=== PATIENT | male | born 1985 | race Caucasian/White ===

== ENCOUNTER 2016-03-25 17:28 | Emergency (ER) | payer OTHER ==
[~2016-03-25] VITALS: Ht 175.3 cm; Wt 160.0 kg
[~2016-03-25 17:28] MED LIST: ASPI81 PO; BACT800T5 PO; GLUCOMETER XX; GLUCOMTESTSTRIPS XX; GLUCTAB PO; INSU100V SQ; PANT40IN3 PO; Z.0.INSULINSYR XX; Z.0.LANCETS XX
[2016-03-25 17:35] VITALS: BP 145/94; PULSE 86; RESP 18; TEMP 97.8; O2SAT 98
[2016-03-25] MEDS ORDERED: KETOROLAC TROMETHAMINE 60 MG/2 ML (IM) VIAL IM ONE (18:30)
[2016-03-25] MEDS ORDERED: ORPHENADRINE INJ 60 MG/2 ML AMP IM ONE (18:30)
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
[2016-03-25 19:52] VITALS: RESP 18
[2016-03-25] MEDS ORDERED: IBUP-232 PO (20:05)
[2016-03-25] MEDS ORDERED: ROBA750T PO (20:05)
== END 2016-03-25 20:17 | disposition home or self-care (01) ==
LOC: PHEFT 17:28
DX: S16.1XXA Strain of muscle, fascia and tendon at neck level, initial encounter (principal); M54.12 Radiculopathy, cervical region; Z79.82 Long term (current) use of aspirin; F41.8 Other specified anxiety disorders; F31.9 Bipolar disorder, unspecified; I10 Essential (primary) hypertension; Z86.73 Personal history of transient ischemic attack (TIA), and cerebral infarction without residual deficits; E11.9 Type 2 diabetes mellitus without complications; V43.62XA Car passenger injured in collision with other type car in traffic accident, initial encounter; Y93.9 Activity, unspecified; Y92.9 Unspecified place or not applicable; Y99.9 Unspecified external cause status
CPT/HCPCS: 72125; 96372; 99283; J1885; J2360

== ENCOUNTER 2016-08-27 21:21 | Emergency (ER) | payer SELFPAY ==
[~2016-08-27] VITALS: Ht 170.2 cm; Wt 152.0 kg
[~2016-08-27 21:21] MED LIST changes: -ASPI81 PO; -BACT800T5 PO; -GLUCOMETER XX; -GLUCOMTESTSTRIPS XX; -GLUCTAB PO; +IBUP-232 PO; -INSU100V SQ; -PANT40IN3 PO; +ROBA750T PO; -Z.0.INSULINSYR XX; -Z.0.LANCETS XX
[2016-08-27 21:26] VITALS: BP 155/112; PULSE 88; RESP 20; TEMP 98.1; O2SAT 95
[2016-08-27 21:50] VITALS: BP 166/117; PULSE 68; RESP 20; O2SAT 96
--- NOTE | 2016-08-27 22:11 | PD ---
HPI Chief Complaint: Headache Time Seen by Provider: 21:53 Travel History International Travel<30 days: No Contact w/Intl Traveler<30days: No Traveled to known affect area: No History of Present Illness HPI 31-year-old male complains of headache, photophobia, dizziness, forgetfulness. Patient states that he started having throbbing headache diffuse over the head for the past week. Patient started having dizziness tonight along with episodes of forgetfulness. Patient complains of photophobia and jaw pain this evening also. Patient denies any visual change. Patient denies any neck pain. Patient denies any chest pain or shortness of breath. Patient denies abdominal pain. Patient denies any focal weakness or numbness of extremity. Patient has history of headache in the past. Patient was seen by a neurologist and workup was negative. Patient has history of diabetes. Patient states that he was on metformin and NovoLog and ran out of money and has not been taking any medication for the past year for diabetes. Patient has been practicing diet -controlled. Patient states that his blood sugars been running around 190-215 after meals . Patient also has history of bipolar disorder, status post CVA. Patient has family history of brain aneurysm early in life. PFSH Past Medical History Hx Anticoagulant Therapy: Yes Asthma: Yes Autoimmune Disease: No Bipolar Disorder: Yes Anxiety: Yes Depression: Yes Cardiac Catheterization: Yes (03/2012) Cardiovascular Problems: Yes (HTN) Chest Pain: Yes COPD: No Cerebrovascular Accident: Yes (TIA 2013) Diabetes: Yes (NO INSULIN SINCE DEC) Diminished Hearing: No Endocrine: Yes Gastrointestinal Disorders: Yes GERD: No Genitourinary: No Headaches: Yes Immune Disorder: No Implanted Vascular Access Dvce: No Musculoskeletal: No Neurologic: Yes Psychiatric: Yes (History of inpatient treatment.) Reproductive: No Respiratory: Yes Immunizations Current: Yes Migraines: Yes Pneumonia: Yes Sleep Apnea: Yes (USES CPAP) Past Surgical History Abdominal Surgery: No Cardiac Surgery: Yes Ear Surgery: No Endocrine Surgery: No Eye Surgery: No Genitourinary Surgery: No Gynecologic Surgery: No Neurologic Surgery: No Oral Surgery: Yes Thoracic Surgery: No Tonsillectomy: Yes Other Surgery: Yes (SEE MED RECORD) Social History Alcohol Use: No Tobacco Use: No Substance Use: No Allergies-Medications (Allergen,Severity, Reaction): Coded Allergies: Penicillin (Verified Allergy, Severe, 07/28/16) PEANUTS (Verified Allergy, Unknown, 07/28/16) Reported Meds & Prescriptions Reported Meds & Active Scripts Active Ibuprofen 600 Mg Tab 600 Mg PO Q6H PRN Review of Systems General / Constitutional: No: Fever Eyes: Positive: Photophobia (TM year), No: Visual changes HENT: Positive: Headaches, Lightheadedness ( reactive) Cardiovascular: No: Chest Pain or Discomfort Respiratory: No: Shortness of Breath Gastrointestinal: No: Abdominal Pain Genitourinary: No: Dysuria Musculoskeletal: No: Pain Skin: No Rash Neurologic: No: Weakness Psychiatric: No: Depression Endocrine: No: Polydipsia Hematologic/Lymphatic: No: Easy Bruising Physical Exam Narrative GENERAL: Well-nourished, well-developed patient. SKIN: Focused skin assessment warm/dry. HEAD: Normocephalic. EYES: No scleral icterus. No injection or drainage. Pupils 3 mm equal reactive. NECK: Supple, trachea midline. No JVD or lymphadenopathy. No meningismus CARDIOVASCULAR: Regular rate and rhythm without murmurs, gallops, or rubs. RESPIRATORY: Breath sounds equal bilaterally. No accessory muscle use. GASTROINTESTINAL: Abdomen soft, non-tender, nondistended. MUSCULOSKELETAL: No cyanosis, or edema. BACK: Nontender without obvious deformity. No CVA tenderness. Neurologic exam normal. Data Data Last Documented VS Vital Signs Date Time Temp Pulse Resp B/P Pulse Ox O2 Delivery O2 Flow Rate FiO2 08/27/16 22:28 96 20 96 08/27/16 21:50 166/117 08/27/16 21:26 98.1 Orders Complete Blood Count With Diff (08/27/16 22:01) Comprehensive Metabolic Panel (08/27/16 22:01) Prothrombin Time / Inr (Pt) (08/27/16 22:01) Act Partial Throm Time (Ptt) (08/27/16 22:01) Westergren Sedimentation Rate (08/27/16 22:01) Ct Brain W/O Iv Contrast(Rout) (08/27/16 22:01) Iv Access Insert/Monitor (08/27/16 22:01) Ecg Monitoring (08/27/16 22:01) Oximetry (08/27/16 22:01) Cta Brain W Iv Contrast W 3d (08/27/16 ) Morphine Inj (Morphine Inj) (08/27/16 22:15) Ondansetron Inj (Zofran Inj) (08/27/16 22:15) Diphenhydramine Inj (Benadryl Inj) (08/27/16 22:15) Cta Neck W Iv Contrast W 3d (08/27/16 22:05) Sodium Chlorid 0.9% 500 Ml Inj (Ns 500 M (08/27/16 23:30) Insulin Human Regular Inj (Novolin R Inj (08/27/16 23:30) Labs Laboratory Tests Test 08/27/16 22:05 White Blood Count 8.7 TH/MM3 Red Blood Count 5.60 MIL/MM3 Hemoglobin 15.8 GM/DL Hematocrit 46.1 % Mean Corpuscular Volume 82.3 FL Mean Corpuscular Hemoglobin 28.2 PG Mean Corpuscular Hemoglobin 34.3 % Concent Red Cell Distribution Width 11.8 % Platelet Count 275 TH/MM3 Mean Platelet Volume 7.8 FL Neutrophils (%) (Auto) 50.1 % Lymphocytes (%) (Auto) 37.4 % Monocytes (%) (Auto) 8.1 % Eosinophils (%) (Auto) 1.2 % Basophils (%) (Auto) 3.2 % Neutrophils # (Auto) 4.3 TH/MM3 Lymphocytes # (Auto) 3.3 TH/MM3 Monocytes # (Auto) 0.7 TH/MM3 Eosinophils # (Auto) 0.1 TH/MM3 Basophils # (Auto) 0.3 TH/MM3 CBC Comment DIFF FINAL Differential Comment Erythrocyte Sedimentation Rate 6 mm/hr Prothrombin Time 10.0 SEC Prothromb Time International 0.9 RATIO Ratio Activated Partial 24.3 SEC Thromboplast Time Sodium Level 136 MEQ/L Potassium Level 4.1 MEQ/L Chloride Level 99 MEQ/L Carbon Dioxide Level 27.4 MEQ/L Anion Gap 10 MEQ/L Blood Urea Nitrogen 8 MG/DL Creatinine 0.82 MG/DL Estimat Glomerular Filtration 110 ML/MIN Rate Random Glucose 495 MG/DL Calcium Level 9.3 MG/DL Total Bilirubin 0.5 MG/DL Aspartate Amino Transf 15 U/L (AST/SGOT) Alanine Aminotransferase 36 U/L (ALT/SGPT) Alkaline Phosphatase 117 U/L Total Protein 7.5 GM/DL Albumin 3.6 GM/DL MDM Medical Decision Making Medical Screen Exam Complete: Yes Emergency Medical Condition: Yes Interpretation(s) 23:20 PM. CBC within normal limits. Sedimentation rate 6. CMP within normal limit. Glucose 495. Differential Diagnosis Differential diagnosis including migraine headache, tension headache, cluster headache, electrolyte abnormality, TIA, CVA, brain aneurysm. Narrative Course 31-year-old male with headache, photophobia, jaw pain, dizziness, forgetfulness. Morphine 2 mg IV. Benadryl 25 mg IV. Zofran 4 mg IV. Normal saline solution 1 L IV bolus. Novolin R 10 units IV given. Diagnosis Primary Impression: Cephalgia Qualified Code: R51 - Nonintractable episodic headache, unspecified headache type Additional Impression: Hyperglycemia Daniel Diaz MD Aug 27, 2016 22:11
[2016-08-27] MEDS ORDERED: diphenhydrAMINE HCL 50 MG/ML VIAL IV PUSH ONE (22:15)
[2016-08-27] MEDS ORDERED: MORPHINE SULFATE 4 MG/ML INJ IV PUSH ONE (22:15)
[2016-08-27] MEDS ORDERED: ONDANSETRON HCL 4 MG/2 ML VIAL IV PUSH ONE (22:15)
[2016-08-27 22:17] LABS: AUTOMATED NEUTROPHIL # 4.3 TH/MM3 (1.8-7.7); BASOPHIL # 0.3 TH/MM3 (0-0.2); BASOPHIL % 3.2 % (0.0-2.0); EOSINOPHIL # 0.1 TH/MM3 (0-0.4); EOSINOPHIL % 1.2 % (0.0-4.0); HEMATOCRIT 46.1 % (39.0-51.0); HEMO FLAGS DIFF FINAL; LYMPH % 37.4 % (9.0-44.0); LYMPHOCYTE # 3.3 TH/MM3 (1.0-4.8); MEAN CELL VOLUME 82.3 FL (80.0-100.0); MEAN CORPUSCULAR HEMOGLOBIN 28.2 PG (27.0-34.0); MEAN CORPUSCULAR HGB CONC 34.3 % (32.0-36.0); MONO % 8.1 % (0.0-8.0); NEUT % 50.1 % (16.0-70.0); PLATELET COUNT 275 TH/MM3 (150-450); RED CELL DISTRIBUTION WIDTH 11.8 % (11.6-17.2); WHITE BLOOD COUNT 8.7 TH/MM3 (4.0-11.0)
[2016-08-27 22:30] VITALS: BP 144/86; PULSE 74; RESP 20; O2SAT 96
[2016-08-27 22:36] LABS: CHLORIDE 99 MEQ/L (98-107); POTASSIUM 4.1 MEQ/L (3.5-5.1); SODIUM (NA) 136 MEQ/L (136-145)
[2016-08-27 22:40] LABS: ANION GAP 10 MEQ/L (5-15); BICARBONATE 27.4 MEQ/L (21.0-32.0)
[2016-08-27 22:50] LABS: APTT (PATIENT) 24.3 SEC (24.3-30.1); INTERNATIONAL NORMALIZED RATIO 0.9 RATIO
[2016-08-27 23:09] LABS: ALKALINE PHOSPHATASE 117 U/L (45-117); ALT (GPT) 36 U/L (12-78); AST (GOT) 15 U/L (15-37); BLOOD UREA NITROGEN 8 MG/DL (7-18); GLOMERULAR FILTRATION RATE 110 ML/MIN (>89); TOTAL BILIRUBIN ADULT 0.5 MG/DL (0.2-1.0)
[2016-08-27] MEDS ORDERED: INSULIN HUMAN REGULAR 1,000 UNITS/10 ML VIAL IV PUSH ONE (23:30)
[2016-08-27] MEDS ORDERED: SODIUM CHLORID 0.9% 500 ML INJ 500 ML IV ONE (23:30)
[2016-08-28] MEDS ORDERED: IOHEXOL 350 MG/ML 100 ML BTL (for RAD DIAG) IV ONE (00:06)
--- NOTE | 2016-08-28 00:13 | PD ---
Physical Exam Date Seen by Provider: Aug 28, 2016 Time Seen by Provider: 00:12 Narrative Accepted in transfer of care from Dr. Daiz Data Data Last Documented VS Vital Signs Date Time Temp Pulse Resp B/P Pulse Ox O2 Delivery O2 Flow Rate FiO2 08/28/16 00:30 71 20 145/77 97 08/27/16 21:26 98.1 Orders Complete Blood Count With Diff (08/27/16 22:01) Comprehensive Metabolic Panel (08/27/16 22:01) Prothrombin Time / Inr (Pt) (08/27/16 22:01) Act Partial Throm Time (Ptt) (08/27/16 22:01) Westergren Sedimentation Rate (08/27/16 22:01) Iv Access Insert/Monitor (08/27/16 22:) Ecg Monitoring (08/27/16 22:01) Oximetry (08/27/16 22:01) Morphine Inj (Morphine Inj) (08/27/16 22:15) Ondansetron Inj (Zofran Inj) (08/27/16 22:15) Diphenhydramine Inj (Benadryl Inj) (08/27/16 22:15) Sodium Chlorid 0.9% 500 Ml Inj (Ns 500 M (08/27/16 23:30) Insulin Human Regular Inj (Novolin R Inj (08/27/16 23:30) Ct Brain W/O Iv Contrast(Rout) (08/28/16 00:06) Cta Brain W Iv Contrast W 3d (08/28/16 00:06) Cta Neck W Iv Contrast W 3d (08/28/16 00:06) Iohexol 350 Inj (Omnipaque 350 Inj) (08/28/16 00:06) Labs Laboratory Tests Test 08/27/16 22:05 White Blood Count 8.7 TH/MM3 Red Blood Count 5.60 MIL/MM3 Hemoglobin 15.8 GM/DL Hematocrit 46.1 % Mean Corpuscular Volume 82.3 FL Mean Corpuscular Hemoglobin 28.2 PG Mean Corpuscular Hemoglobin 34.3 % Concent Red Cell Distribution Width 11.8 % Platelet Count 275 TH/MM3 Mean Platelet Volume 7.8 FL Neutrophils (%) (Auto) 50.1 % Lymphocytes (%) (Auto) 37.4 % Monocytes (%) (Auto) 8.1 % Eosinophils (%) (Auto) 1.2 % Basophils (%) (Auto) 3.2 % Neutrophils # (Auto) 4.3 TH/MM3 Lymphocytes # (Auto) 3.3 TH/MM3 Monocytes # (Auto) 0.7 TH/MM3 Eosinophils # (Auto) 0.1 TH/MM3 Basophils # (Auto) 0.3 TH/MM3 CBC Comment DIFF FINAL Differential Comment Erythrocyte Sedimentation Rate 6 mm/hr Prothrombin Time 10.0 SEC Prothromb Time International 0.9 RATIO Ratio Activated Partial 24.3 SEC Thromboplast Time Sodium Level 136 MEQ/L Potassium Level 4.1 MEQ/L Chloride Level 99 MEQ/L Carbon Dioxide Level 27.4 MEQ/L Anion Gap 10 MEQ/L Blood Urea Nitrogen 8 MG/DL Creatinine 0.82 MG/DL Estimat Glomerular Filtration 110 ML/MIN Rate Random Glucose 495 MG/DL Calcium Level 9.3 MG/DL Total Bilirubin 0.5 MG/DL Aspartate Amino Transf 15 U/L (AST/SGOT) Alanine Aminotransferase 36 U/L (ALT/SGPT) Alkaline Phosphatase 117 U/L Total Protein 7.5 GM/DL Albumin 3.6 GM/DL [facility] Medical Record Reviewed: Yes Supervised Visit with DORCAS: No Interpretation(s) CTA carotids: ONCLUSION: Normal carotid CTA. Gareth Hernandez MD on August 28, 2016 at 2:34 Board Certified Radiologist. This report was verified electronically. CVTA brain: CONCLUSION: Normal CT angiogram of the brain. No aneurysm, thrombosis or stenosis Gareth Hernandez MD on August 28, 2016 at 2:31 Board Certified Radiologist. This report was verified electronically. CT brain w/o: CONCLUSION: Negative noncontrast head CT. Gareth Hernandez MD on August 28, 2016 at 0:53 Board Certified Radiologist. This report was verified electronically. Last Impressions Neck CTA 08/28/165 Signed Impressions: Service Date/Time: Saturday, August 27, 2016 23:58 - CONCLUSION: Normal carotid CTA. Gareth Hernandez MD Head CTA 08/28/165 Signed Impressions: Service Date/Time: Saturday, August 27, 2016 23:58 - CONCLUSION: Normal CT angiogram of the brain. No aneurysm, thrombosis or stenosis Gareth Hernandez MD Head CT 08/28/165 Signed Impressions: Service Date/Time: Saturday, August 27, 2016 23:58 - CONCLUSION: Negative noncontrast head CT. Gareth Hernandez MD Differential Diagnosis Please refer to Dr. Diaz's dictation Narrative Course Accepted transfer of care from Dr. Diaz for follow-up pending imaging studies and patient disposition; patient in CT Patient resting quietly waiting imaging results CT brain noncontrast reveals no acute abnormality read as negative by reading radiologist It is now 3 AM CTA brain and CTA carotids imaging studies have been resulted by radiologist and read as no acute abnormality Patient is informed of imaging results and stable for outpatient management. Diagnosis Primary Impression: Cephalgia Qualified Code: R51 - Nonintractable episodic headache, unspecified headache type Additional Impressions: Hyperglycemia Medication refill Diabetes mellitus Referrals: [facility] call for appointment [facility] call for appointment Primary Care Physician call for appointment Patient Instructions: General Instructions Additional Instruction: Increase fluid hydration Follow-up with your primary care provider Return to the emergency department for any concerns or change in condition Take medication as prescribed as needed for nausea and/or vomiting Med/Other Pt SpecificInfo: Prescription(s) given Scripts Metformin 500 Mg Exf091 Mg PO BIDPC #60 TAB Ref 0 With meals Prov:Gerda Titus MD 08/28/16 Ondansetron Odt (Zofran Odt)4 Mg Tab4 Mg SL Q6HR PRN (Nausea/Vomiting) #10 TAB Ref 0 Prov:Gerda Titus MD 08/28/16 Disposition: 01 DISCHARGE HOME Condition: Stable Gerda Titus MD Aug 28, 2016 00:13
[2016-08-28 00:30] VITALS: BP 145/77; PULSE 71; RESP 20; O2SAT 97
--- NOTE | 2016-08-28 00:55 | RADHPO ---
EXAM DATE/TIME: 08/27/2016 23:58 [facility] COMPARISON: MRI BRAIN W/O CONTRAST, November 07, 2015, 17:08. CT BRAIN W/O CONTRAST, November 07, 2015, 15:36. INDICATIONS : Cephalgia. Dizziness. Confusion. RADIATION DOSE: 57.75 CTDIvol (mGy) MEDICAL HISTORY : Diabetes mellitus type 2. Hypertension. Cerebrovascular disease. SURGICAL HISTORY : None. ENCOUNTER: Initial ACUITY: 2 weeks PAIN SCALE: 9/10 LOCATION: cranial TECHNIQUE: Multiple contiguous axial images were obtained of the head. Using automated exposure control and adj ustment of the mA and/or kV according to patient size, radiation dose was kept as low as reasonably a chievable to obtain optimal diagnostic quality images. FINDINGS: CEREBRUM: The ventricles are normal for age. No evidence of midline shift, mass lesion, hemorrhage or acute in farction. No extra-axial fluid collections are seen. POSTERIOR FOSSA: The cerebellum and brainstem are intact. The 4th ventricle is midline. The cerebellopontine angle i s unremarkable. EXTRACRANIAL: The visualized portion of the orbits is intact. SKULL: The calvaria is intact. No evidence of skull fracture. CONCLUSION: Negative noncontrast head CT. Gareth Hernandez MD on August 28, 2016 at 0:53 Board Certified Radiologist. This report was verified electronically.
--- NOTE | 2016-08-28 02:35 | RADHPO ---
EXAM DATE/TIME: 08/27/2016 23:58 [facility] COMPARISON: CT BRAIN W/O CONTRAST, August 27, 2016, 23:58. INDICATIONS : Cephalgia. Dizziness. Confusion. Evaluate for aneurysm. IV CONTRAST: 100 cc Omnipaque 350 (iohexol) IV ; Cumulative dose for multiple exams. RADIATION DOSE: 42.32 CTDIvol (mGy) ; Combined studies MEDICAL HISTORY : Cerebrovascular disease. Diabetes mellitus type 2. Hypertension. SURGICAL HISTORY : None. ENCOUNTER: Initial ACUITY: 2 weeks PAIN SCALE: 9/10 LOCATION: cranial TECHNIQUE: Volumetric scanning was performed using a multi-row detector CT scanner. The data was post processed with a variety of visualization algorithms including full volume maximum intensity projection, multi -planar sliding thin slab reformation, curved planar reformation, and surface rendering techniques. Using automated exposure control and adjustment of the mA and/or kV according to patient size, radiat ion dose was kept as low as reasonably achievable to obtain optimal diagnostic quality images. FINDINGS: There is excellent visualization of the major intracranial arteries out to the second-order branch ve ssels. There is no evidence for aneurysm, vessel truncation or stenosis, and no evidence for vascula r malformation. CONCLUSION: Normal CT angiogram of the brain. No aneurysm, thrombosis or stenosis Gareth Hernandez MD on August 28, 2016 at 2:31 Board Certified Radiologist. This report was verified electronically.
--- NOTE | 2016-08-28 02:38 | RADHPO ---
EXAM DATE/TIME: 08/27/2016 23:58 [facility] COMPARISON: CTA BRAIN W 3D RECON, August 27, 2016, 23:58. CT BRAIN W/O CONTRAST, August 27, 2016, 23:58. CTA CAROTI D ARTERIES W 3D RECON, November 09, 2015, 16:26. INDICATIONS : Cephalgia. Dizziness. Confusion. Evaluate for aneurysm. IV CONTRAST: 100 cc Omnipaque 350 (iohexol) IV ; Cumulative dose for multiple exams. RADIATION DOSE: 42.32 CTDIvol (mGy) ; Combined studies MEDICAL HISTORY : Hypertension. Diabetes mellitus type 2. Cerebrovascular disease. SURGICAL HISTORY : None. ENCOUNTER: Initial ACUITY: 2 weeks PAIN SCALE: 9/10 LOCATION: neck Elevated flow velocities and ICA/CCA ratios have been found to correlate with increased degrees of vessel stenosis, calculated as percentage of diameter relative to a normal segment of distal ICA/CCA. TECHNIQUE: Volumetric scanning was performed using a multirow detector CT scanner. The data was post processed with a variety of visualization algorithms including full-volume maximum intensity projection, multip lanar sliding thin-slab reformation, curved-planar reformation, and surface-rendering techniques. Us ing automated exposure control and adjustment of the mA and/or kV according to patient size, radiatio n dose was kept as low as reasonably achievable to obtain optimal diagnostic quality images. FINDINGS: AORTIC ARCH: There is a three-vessel origin of the great vessels from the aorta. No evidence of ostial narrowing. RIGHT CAROTID: The common carotid artery is intact. The carotid bulb has a normal configuration without ulceration o r narrowing. The internal carotid artery lumen is smooth without stenosis. The external carotid naz ry is intact. LEFT CAROTID: The common carotid artery is intact. The carotid bulb has a normal configuration without ulceration or narrowing. The internal carotid artery lumen is smooth without stenosis. The external carotid ar evans is intact. VERTEBRALS: The vertebral arteries have a symmetric diameter. No stenotic lesions are seen. CONCLUSION: Normal carotid CTA. Gareth Hernandez MD on August 28, 2016 at 2:34 Board Certified Radiologist. This report was verified electronically.
[2016-08-28] MEDS ORDERED: ZOFR4TAB3 SL (03:03)
[2016-08-28] MEDS ORDERED: METF500T PO (03:06)
[2016-08-28 03:21] VITALS: BP 119/73
--- NOTE | 2016-08-29 16:54 | EKG ---
Date Performed: 08/27/2016 Time Performed: 21:49:09 PTAGE: 31 years EKG: NORMAL Sinus rhythm NONSPECIFIC ST-T WAVE CHANGES NORMAL ECG Likely no significant change. PREVIOUS TRACING : 11/07/2015 15.52 DOCTOR: Anjali Mcniar Interpretating Date/Time 08/29/2016 16:50:10
== END 2016-08-28 03:31 | disposition home or self-care (01) ==
LOC: PHED 21:21
DX: R51 Headache (principal); E11.65 Type 2 diabetes mellitus with hyperglycemia; R68.84 Jaw pain; R42 Dizziness and giddiness
CPT/HCPCS: 70450; 70496; 70498; 80053; 85025; 85610; 85652; 85730; 93005; 96374; 96375; 99285; J1200; J1815; J2270; J2405; J7040; Q9967

== ENCOUNTER 2016-10-30 00:24 | Emergency (ER) | payer SELFPAY ==
[2016-10-30] VITALS (7 sets, daily range): BP systolic 130–157; BP diastolic 69–87; PULSE 62–79; RESP 18–20; TEMP 97.9; O2SAT 96–98
[~2016-10-30] VITALS: Ht 170.2 cm; Wt 149.0 kg
[~2016-10-30 00:24] MED LIST changes: +METF500T PO; -ROBA750T PO; +ZOFR4TAB3 SL
[2016-10-30] MEDS ORDERED: METF1000 PO (02:13)
[2016-10-30] MEDS ORDERED: NOVORP2 SQ (02:13)
[2016-10-30] MEDS ORDERED: SODIUM CHLOR 0.9% 1000 ML INJ 1,000 ML IV SCH (02:50)
[2016-10-30] MEDS ORDERED: SODIUM CHLORIDE 0.9% FLUSH 10 ML FLUSH IV FLUSH PRN (03:00)
[2016-10-30] MEDS ORDERED: ONDANSETRON HCL 4 MG/2 ML VIAL IVP ONE (03:00)
--- NOTE | 2016-10-30 03:05 | PD ---
HPI Chief Complaint: GI Complaint Time Seen by Provider: 02:50 Travel History International Travel<30 days: No Contact w/Intl Traveler<30days: No Traveled to known affect area: No History of Present Illness HPI 31-year-old male presents to the emergency department for 4 days of nausea vomiting dizziness and inability to handle oral hydration or dietary intake. Patient is diabetic. Patient states that he is been very compliant with his diet and blood sugars have typically been less than 200 but since his episode of nausea vomiting dizziness and inability to hydrate his blood sugars have been up to 345 and he doesn't understand why. No fever no chills no cough no congestion no chest pain no back pain. Patient does complain of abdominal discomfort. Patient has had no dysuria frequency urgency or hematuria or flank pain. Patient denies change in bowel habits or diarrhea. No hematemesis no coffee-ground emesis no melena hematochezia. Patient states that he had been doing well and has been swimming daily in after slamming on while walking home had his first episode of vomiting. PFSH Past Medical History Narrative Medical TIA diabetes chest pain with normal coronary vessels by cardiac catheterization asthma anxiety depression hypertension CHF sleep apnea CPAP usage tonsillectomy ; no tobacco use no substance no alcohol use; nursing notes reviewed Hx Anticoagulant Therapy: Yes Asthma: Yes Autoimmune Disease: No Bipolar Disorder: Yes Anxiety: Yes Depression: Yes Cardiac Catheterization: Yes (03/2012) Cardiovascular Problems: Yes (HTN) Chest Pain: Yes Congestive Heart Failure: Yes COPD: No Cerebrovascular Accident: Yes (TIA 2013) Coronary Artery Disease: Yes Diabetes: Yes (NO INSULIN SINCE DEC 2015) Patient Takes Glucophage: Yes Diminished Hearing: No Endocrine: Yes Gastrointestinal Disorders: Yes GERD: No Genitourinary: No Headaches: Yes Hypertension: Yes Immune Disorder: No Implanted Vascular Access Dvce: No Musculoskeletal: No Neurologic: Yes Psychiatric: Yes Reproductive: No Respiratory: Yes Immunizations Current: Yes Migraines: Yes Pneumonia: Yes Sleep Apnea: Yes (USES CPAP) Tetanus Vaccination: < 5 Years Influenza Vaccination: Yes Past Surgical History Abdominal Surgery: No Cardiac Surgery: Yes Ear Surgery: No Endocrine Surgery: No Eye Surgery: No Genitourinary Surgery: No Gynecologic Surgery: No Neurologic Surgery: No Oral Surgery: Yes Thoracic Surgery: No Tonsillectomy: Yes Other Surgery: Yes Social History Alcohol Use: No Tobacco Use: No Substance Use: No Allergies-Medications (Allergen,Severity, Reaction): Coded Allergies: penicillin G (Unverified Allergy, Severe, 10/30/16) peanut (Unverified Allergy, Unknown, 10/30/16) Reported Meds & Prescriptions Reported Meds & Active Scripts Active Reported Novolin R Inj (Insulin Human Regular) 1,000 Unit/10 Ml Vial 0 SQ DIRECTED Sliding Scale As Directed. Metformin (Metformin HCl) 1,000 Mg Tab 1,000 Mg PO BIDPC With meals Review of Systems Except as stated in HPI: all other systems reviewed are Neg Physical Exam Narrative GENERAL: Well-developed obese male in no acute distress no respiratory distress ; GCS 15 SKIN: Warm and dry. HEAD: Normocephalic. EYES: No scleral icterus. No injection or drainage. NECK: Supple, trachea midline. No JVD or lymphadenopathy. CARDIOVASCULAR: Regular rate and rhythm without murmurs, gallops, or rubs. RESPIRATORY: Breath sounds equal bilaterally. No accessory muscle use. GASTROINTESTINAL: Abdomen soft, non-tender, nondistended. MUSCULOSKELETAL: No cyanosis, or edema. BACK: Nontender without obvious deformity. No CVA tenderness. Data Data Last Documented VS Vital Signs Date Time Temp Pulse Resp B/P (MAP) Pulse Ox O2 Delivery O2 Flow Rate FiO2 10/30/16 04:21 62 18 139/69 (92) 97 Room Air 10/30/16 00:36 97.9 Orders Orders Complete Blood Count With Diff (10/30/16 02:50) Comprehensive Metabolic Panel (10/30/16 02:50) Lipase (10/30/16 02:50) Urinalysis - C+S If Indicated (10/30/16 02:50) Iv Access Insert/Monitor (10/30/16 02:50) Ecg Monitoring (10/30/16 02:50) Oximetry (10/30/16 02:50) Ondansetron Inj (Zofran Inj) (10/30/16 03:00) Sodium Chlor 0.9% 1000 Ml Inj (Ns 1000 M (10/30/16 02:50) Sodium Chloride 0.9% Flush (Ns Flush) (10/30/16 03:00) Electrocardiogram (10/30/16 02:50) Chest, Single Ap (10/30/16 02:50) Blood Glucose (10/30/16 02:50) Magnesium (Mg) (10/30/16 02:50) Sodium Chlor 0.9% 1000 Ml Inj (Ns 1000 M (10/30/16 04:00) Insulin Human Regular Inj (Novolin R Inj (10/30/16 04:00) Labs Laboratory Tests Test 10/30/16 02:50 White Blood Count 9.6 TH/MM3 Red Blood Count 5.43 MIL/MM3 Hemoglobin 15.3 GM/DL Hematocrit 45.6 % Mean Corpuscular Volume 84.0 FL Mean Corpuscular Hemoglobin 28.2 PG Mean Corpuscular Hemoglobin Concent 33.6 % Red Cell Distribution Width 12.4 % Platelet Count 252 TH/MM3 Mean Platelet Volume 8.0 FL Neutrophils (%) (Auto) 58.5 % Lymphocytes (%) (Auto) 32.5 % Monocytes (%) (Auto) 6.9 % Eosinophils (%) (Auto) 1.2 % Basophils (%) (Auto) 0.9 % Neutrophils # (Auto) 5.6 TH/MM3 Lymphocytes # (Auto) 3.1 TH/MM3 Monocytes # (Auto) 0.7 TH/MM3 Eosinophils # (Auto) 0.1 TH/MM3 Basophils # (Auto) 0.1 TH/MM3 CBC Comment DIFF FINAL Differential Comment Urine Color YELLOW Urine Turbidity CLEAR Urine pH 5.5 Urine Specific [place] GREATER THAN 1.035 Urine Protein NEG mg/dL Urine Glucose (UA) 1000 OR GREATER mg/dL Urine Ketones NEG mg/dL Urine Occult Blood NEG Urine Nitrite NEG Urine Bilirubin NEG Urine Leukocyte Esterase NEG Urine WBC 0-2 /hpf Urine Squamous Epithelial Cells 0-5 /hpf Urine Calcium Oxalate Crystals MOD /hpf Microscopic Urinalysis Comment CULT NOT INDICATED Blood Urea Nitrogen 7 MG/DL Creatinine 0.75 MG/DL Random Glucose 393 MG/DL Total Protein 7.2 GM/DL Albumin 3.4 GM/DL Calcium Level 8.8 MG/DL Magnesium Level 1.8 MG/DL Alkaline Phosphatase 117 U/L Aspartate Amino Transf (AST/SGOT) 21 U/L Alanine Aminotransferase (ALT/SGPT) 41 U/L Total Bilirubin 0.4 MG/DL Sodium Level 134 MEQ/L Potassium Level 3.9 MEQ/L Chloride Level 101 MEQ/L Carbon Dioxide Level 25.9 MEQ/L Anion Gap 7 MEQ/L Estimat Glomerular Filtration Rate 121 ML/MIN Lipase 119 U/L MDM Medical Decision Making Medical Screen Exam Complete: Yes Emergency Medical Condition: Yes Medical Record Reviewed: Yes Interpretation(s) EKG normal sinus rhythm rate [address] elevation or ectopy or injury pattern noted CBC & BMP Diagram 10/30/16 02:50 Total Protein 7.2, Albumin 3.4, Calcium Level 8.8, Magnesium Level 1.8, Alkaline Phosphatase 117, Aspartate Amino Transf (AST/SGOT) 21, Alanine Aminotransferase (ALT/SGPT) 41, Total Bilirubin 0.4 Vital Signs Date Time Temp Pulse Resp B/P (MAP) Pulse Ox O2 Delivery O2 Flow Rate FiO2 10/30/16 04:21 62 18 139/69 (92) 97 Room Air 10/30/16 03:23 71 18 132/74 (93) 98 Room Air 10/30/16 03:01 97 Room Air 10/30/16 02:14 77 20 135/70 (91) 98 10/30/16 00:36 97.9 79 18 157/87 (110) 97 UA: Elevated specific gravity; glucosuria Differential Diagnosis Vomiting, gastroenteritis, dehydration, hyperglycemia, DKA, arrhythmia, electrolyte disturbance Narrative Course Bedside glucose 369; IV access obtained specimens collected and sent for resulting patient administered Zofran 4 mg IV and 1 L normal saline EKG sinus rhythm no acute ST elevation or injury pattern or ectopy noted Patient resting comfortably sleeping awakened easily Patient no longer has any complaint of nausea has had no vomiting denies any abdominal discomfort Repeat random glucose 324 decreased from 396 At 5:22 AM additional Regular Insulin administered 4 units IV Patient is stable for outpatient management and follow-up with his primary care provider will be provided prescription for Zofran and encouraged to follow clear liquid diet for next 12-24 hours advance to bland diet following [place] [employer] guidelines on to regular diet patient agrees to return the emergency department for a concerns or change in condition Diagnosis Primary Impression: Gastroenteritis Additional Impression: Dehydration Referrals: Primary Care Physician 1 day Patient Instructions: General Instructions Additional Instructions: Follow clear liquid diet for next 12-24 hours advance diet as tolerated to bland /Brian diet following [place] [employer] guidelines Continue current medications as presently prescribed Take Zofran as prescribed as needed for nausea and/or vomiting Follow-up with your primary care provider Return to the emergency department for any concerns or change in condition Med/Other Pt SpecificInfo: Prescription(s) given Scripts Ondansetron Odt (Zofran Odt) 4 Mg Tab 4 MG SL Q6HR Y for Nausea/Vomiting, #12 TAB 0 Refills Prov: Gerda Titus MD 10/30/16 Disposition: 01 DISCHARGE HOME Condition: Stable Gerda Titus MD Oct 30, 2016 03:05
[2016-10-30 03:14] LABS: AUTOMATED NEUTROPHIL # 5.6 TH/MM3 (1.8-7.7); BASOPHIL # 0.1 TH/MM3 (0-0.2); BASOPHIL % 0.9 % (0.0-2.0); EOSINOPHIL # 0.1 TH/MM3 (0-0.4); EOSINOPHIL % 1.2 % (0.0-4.0); HEMATOCRIT 45.6 % (39.0-51.0); LYMPH % 32.5 % (9.0-44.0); LYMPHOCYTE # 3.1 TH/MM3 (1.0-4.8); MEAN CORPUSCULAR HEMOGLOBIN 28.2 PG (27.0-34.0); MEAN CORPUSCULAR HGB CONC 33.6 % (32.0-36.0); MONO % 6.9 % (0.0-8.0); NEUT % 58.5 % (16.0-70.0); PLATELET COUNT 252 TH/MM3 (150-450); RED BLOOD COUNT 5.43 MIL/MM3 (4.50-5.90); RED CELL DISTRIBUTION WIDTH 12.4 % (11.6-17.2); WHITE BLOOD COUNT 9.6 TH/MM3 (4.0-11.0)
[2016-10-30 03:18] LABS: HEMO FLAGS DIFF FINAL
[2016-10-30 03:21] LABS: BLOOD, URINE NEG (NEG); GLUCOSE,URINE 1000 OR GREATER mg/dL (NEG); KETONE, URINE NEG (NEG); NITRITE,URINE NEG (NEG); PH, URINE 5.5 (5.0-8.5)
[2016-10-30 03:23] LABS: CHLORIDE 101 MEQ/L (98-107); POTASSIUM 3.9 MEQ/L (3.5-5.1); SODIUM (NA) 134 MEQ/L (136-145)
[2016-10-30 03:27] LABS: ANION GAP 7 MEQ/L (5-15); BICARBONATE 25.9 MEQ/L (21.0-32.0); BLOOD UREA NITROGEN 7 MG/DL (7-18); MAGNESIUM 1.8 MG/DL (1.5-2.5)
[2016-10-30 03:30] LABS: ALT (GPT) 41 U/L (12-78); AST (GOT) 21 U/L (15-37); GLOMERULAR FILTRATION RATE 121 ML/MIN (>89)
[2016-10-30 03:31] LABS: TOTAL BILIRUBIN ADULT 0.4 MG/DL (0.2-1.0)
[2016-10-30 03:33] LABS: ALKALINE PHOSPHATASE 117 U/L (45-117)
--- NOTE | 2016-10-30 03:37 | RADRPT ---
EXAM DATE/TIME: 10/30/2016 02:59 [facility] COMPARISON: No previous studies available for comparison. INDICATIONS : Shortness of breath. MEDICAL HISTORY : Hypertension. Diabetes mellitus type II. SURGICAL HISTORY : None. ENCOUNTER: Initial ACUITY: 1 day PAIN SCORE: 0/10 LOCATION: Bilateral chest FINDINGS: A single view of the chest demonstrates the lungs to be symmetrically aerated without evidence of mas s, infiltrate or effusion. The cardiomediastinal contours are unremarkable. Osseous structures are intact. CONCLUSION: No acute disease. Pantera Chen MD on October 30, 2016 at 3:36 Board Certified Radiologist. This report was verified electronically.
[2016-10-30 03:41] LABS: URINE COLOR YELLOW (YELLW/STRAW)
[2016-10-30 03:42] LABS: CALCIUM OXALATE CRYSTALS,URINE MOD /hpf; SQUAMOUS EPITHELIAL CELL URINE 0-5 /hpf (0-5); WBC, URINE 0-2 /hpf (0-5)
[2016-10-30 03:43] LABS: COMMENT (UR) CULT NOT INDICATED; CULTURE IF INDICATED CULT NOT INDICATED
[2016-10-30] MEDS ORDERED: SODIUM CHLOR 0.9% 1000 ML INJ 1,000 ML IV ONE (04:00)
[2016-10-30] MEDS ORDERED: INSULIN HUMAN REGULAR 1,000 UNITS/10 ML VIAL IV PUSH ONE ×2 (04:00→05:30)
[2016-10-30] MEDS ORDERED: ZOFR4TAB3 SL (05:21)
--- NOTE | 2016-10-30 07:46 | EKG ---
Date Performed: 10/30/2016 Time Performed: 02:56:05 PTAGE: 31 years EKG: Sinus rhythm NORMAL ECG PREVIOUS TRACING : 08/27/2016 21.49 Compared to previous tracing, diffuse ST elevation is no lo nger evident. DOCTOR: Nestor Davies Interpretating Date/Time 10/30/2016 07:44:44
== END 2016-10-30 06:37 | disposition home or self-care (01) ==
LOC: PHED 00:24
DX: K52.9 Noninfective gastroenteritis and colitis, unspecified (principal); E86.0 Dehydration; E11.9 Type 2 diabetes mellitus without complications; Z79.4 Long term (current) use of insulin; Z79.84 Long term (current) use of oral hypoglycemic drugs
CPT/HCPCS: 71010; 80053; 81001; 83690; 83735; 85025; 93005; 96361; 96374; 96375; 96376; 99285; J1815; J2405; J7030

== ENCOUNTER 2016-11-22 07:35 | Emergency (ER) | payer SELFPAY ==
[~2016-11-22] VITALS: Ht 172.7 cm; Wt 146.0 kg
[~2016-11-22 07:35] MED LIST changes: -IBUP-232 PO; +METF1000 PO; -METF500T PO; +NOVORP2 SQ
[2016-11-22 07:40] VITALS: BP 171/96; PULSE 76; RESP 16; TEMP 98.7; O2SAT 98
[2016-11-22] MEDS ORDERED: IBUP-1129 PO (08:00)
[2016-11-22] MEDS ORDERED: CLIN1CAP6 PO (08:01)
--- NOTE | 2016-11-22 08:01 | PD ---
HPI Chief Complaint: Oral / Dental Pain or Problem Time Seen by Provider: 07:53 Travel History International Travel<30 days: No Contact w/Intl Traveler<30days: No Traveled to known affect area: No History of Present Illness HPI 31-year-old male presents to the ER today because of swelling on the right jaw has been going on for 2 days. He states that he has a bad tooth on that side. He denies any fevers, difficulty swallowing, or any other symptoms. Modifying Factors: None Associated Signs & Symptoms: Right sided jaw pain and swelling, toothache Risk Factors: None PFSH Past Medical History Hx Anticoagulant Therapy: Yes Asthma: Yes Autoimmune Disease: No Bipolar Disorder: Yes Anxiety: Yes Depression: Yes Cardiac Catheterization: Yes (03/2012) Cardiovascular Problems: Yes (HTN) Chest Pain: Yes Congestive Heart Failure: Yes COPD: No Cerebrovascular Accident: Yes (TIA 2013) Coronary Artery Disease: Yes Diabetes: Yes Diminished Hearing: No Endocrine: Yes Gastrointestinal Disorders: Yes GERD: No Genitourinary: No Headaches: Yes Hypertension: Yes Immune Disorder: No Implanted Vascular Access Dvce: No Musculoskeletal: No Neurologic: Yes Psychiatric: Yes Reproductive: No Respiratory: Yes Immunizations Current: Yes Migraines: Yes Pneumonia: Yes Sleep Apnea: Yes (USES CPAP) Past Surgical History Abdominal Surgery: No Cardiac Surgery: Yes Ear Surgery: No Endocrine Surgery: No Eye Surgery: No Genitourinary Surgery: No Gynecologic Surgery: No Neurologic Surgery: No Oral Surgery: Yes Thoracic Surgery: No Tonsillectomy: Yes Other Surgery: Yes Social History Alcohol Use: No Tobacco Use: No Substance Use: No Allergies-Medications (Allergen,Severity, Reaction): Coded Allergies: penicillin G (Unverified Allergy, Severe, Anaphylaxis, 11/22/16) peanut (Unverified Allergy, Unknown, Anaphylaxis, 11/22/16) Reported Meds & Prescriptions Reported Meds & Active Scripts Active No Active Prescriptions or Reported Medications Review of Systems Except as stated in HPI: all other systems reviewed are Neg Physical Exam Narrative GENERAL: Well-developed young white male patient currently in mild distress. Awake and oriented 3. SKIN: Focused skin assessment warm/dry. HEAD: Atraumatic. Normocephalic. EYES: Pupils equal and round. No scleral icterus. No injection or drainage. ENT: No nasal bleeding or discharge. Mucous membranes pink and moist. DENTAL: No loose or chipped teeth. No malocclusion. There is a notable caried on the right mandibular molar. Mild surrounding gingival edema with no underlying fluctuance. No submandibular fullness. NECK: Trachea midline. No JVD. CARDIOVASCULAR: Regular rate and rhythm. No murmur appreciated. RESPIRATORY: No accessory muscle use. Clear to auscultation. Breath sounds equal bilaterally. GASTROINTESTINAL: Abdomen soft, non-tender, nondistended. Hepatic and splenic margins not palpable. MUSCULOSKELETAL: No obvious deformities. No clubbing. No cyanosis. No edema. NEUROLOGICAL: Awake and alert. No obvious cranial nerve deficits. Motor grossly within normal limits. Normal speech. PSYCHIATRIC: Appropriate mood and affect; insight and judgment normal. Data Data Last Documented VS Vital Signs Date Time Temp Pulse Resp B/P (MAP) Pulse Ox O2 Delivery O2 Flow Rate FiO2 11/22/16 07:40 98.7 76 16 171/96 (121) 98 Room Air MDM Medical Decision Making Medical Screen Exam Complete: Yes Emergency Medical Condition: Yes Medical Record Reviewed: Yes Differential Diagnosis Dental carry, gingivitis, rule out abscess Narrative Course I do not see any signs of current dental abscess. At this point, my plan would be to give him antibiotics and have him follow-up with dentist. Return for worsening in symptoms as necessary. The plan has been discussed with him and he states understanding. Diagnosis Primary Impression: Dental infection Med/Other Pt SpecificInfo: Prescription(s) given Scripts Clindamycin (Clindamycin) 300 Mg Cap 300 MG PO TID for Infection, #21 CAP 0 Refills Prov: Chloe Cruz MD 11/22/16 Ibuprofen (Motrin Ib) 200 Mg Tablet 600 MG PO QID Y for PAIN SCALE 1 TO 10, #28 Prov: Chloe Cruz MD 11/22/16 Disposition: 01 DISCHARGE HOME Condition: Stable Chloe Cruz MD Nov 22, 2016 08:01
== END 2016-11-22 08:20 | disposition home or self-care (01) ==
LOC: PHED 07:35
DX: K04.7 Periapical abscess without sinus (principal); E11.9 Type 2 diabetes mellitus without complications; I10 Essential (primary) hypertension; G47.30 Sleep apnea, unspecified; Z79.01 Long term (current) use of anticoagulants; Z87.09 Personal history of other diseases of the respiratory system; Z86.59 Personal history of other mental and behavioral disorders; Z86.79 Personal history of other diseases of the circulatory system; Z87.19 Personal history of other diseases of the digestive system; Z86.69 Personal history of other diseases of the nervous system and sense organs
CPT/HCPCS: 99283